=== PATIENT | male | born 2000 | race Caucasian/White ===

== ENCOUNTER 2019-05-26 10:13 | Emergency (ER) | payer OTHER ==
[~2019-05-26] VITALS: Ht 193 cm; Wt 95.2 kg
[~2019-05-26 10:13] MED LIST: LORA1 PO
[2019-05-26] MEDS ORDERED: TOPI50 (10:20)
[2019-05-26] MEDS ORDERED: Tenex1 MG (10:20)
[2019-05-26] MEDS ORDERED: TRAZ100 (10:21)
[2019-05-26] MEDS ORDERED: METPHE18ER PO (10:21)
== END 2019-05-26 11:29 | disposition home or self-care (01) ==
LOC: ER 10:13
DX: S60.211A Contusion of right wrist, initial encounter (principal); W17.89XA Other fall from one level to another, initial encounter; Z88.5 Allergy status to narcotic agent; Z79.899 Other long term (current) drug therapy; F25.9 Schizoaffective disorder, unspecified; F90.9 Attention-deficit hyperactivity disorder, unspecified type
CPT/HCPCS: 29125; 73110; 99283-25

== ENCOUNTER 2019-05-31 09:54 | Emergency (ER) | payer OTHER ==
[~2019-05-31] VITALS: Ht 193 cm; Wt 90.7 kg
[~2019-05-31 09:54] MED LIST changes: +METPHE18ER PO; +TOPI50; +TRAZ100; +Tenex1 MG
== END 2019-05-31 12:15 | disposition home or self-care (01) ==
LOC: ER 09:54
DX: M25.531 Pain in right wrist (principal); Z88.5 Allergy status to narcotic agent; Z79.899 Other long term (current) drug therapy; F90.9 Attention-deficit hyperactivity disorder, unspecified type; F25.9 Schizoaffective disorder, unspecified
CPT/HCPCS: 29125; 99283-25

== ENCOUNTER 2019-06-24 00:14 | Emergency (ER) | payer OTHER ==
[~2019-06-24] VITALS: Ht 195.6 cm; Wt 88.5 kg
[2019-06-24] MEDS ORDERED: METPHE18ER PO (00:32)
[2019-06-24 00:56] LABS: BASOPHILS ABSOLUTE AUTO 0.03 K/mm3 (0.00-0.23); BASOPHILS PERCENT AUTO 0 % (0-2); EOSINOPHILS ABSOLUTE AUTO 0.06 K/mm3 (0.00-0.68); EOSINOPHILS PERCENT AUTO 1 % (0-6); Hemoglobin 15.2 g/dL (13.5-17.5); IMMATURE GRAN ABSOLUTE AUTO 0.04 K/mm3 (0.00-0.10); IMMATURE GRAN PERCENT AUTO 0 % (0-1); LYMPHOCYTES ABSOLUTE AUTO 3.45 K/mm3 (0.84-5.20); LYMPHOCYTES PERCENT AUTO 31 % (21-46); MONOCYTES ABSOLUTE AUTO 0.81 K/mm3 (0.16-1.47); MONOCYTES PERCENT AUTO 7 % (4-13); Mean Corpuscular HGB Conc 32.3 g/dL (31.5-36.5); Mean Corpuscular Volume 90 fL (80-100); Mean Platelet Volume 10.5 fL (9.1-12.4); NEUTROPHILS ABSOLUTE AUTO 6.86 K/mm3 (1.96-9.15); NEUTROPHILS PERCENT AUTO 61 % (41-73); Platelet Count 267 K/mm3 (150-400); RDW Coefficient Variation 12.6 % (11.7-14.2); RDW Standard Deviation 41.6 fL (35.1-46.3); Red Blood Cell Count 5.25 M/mm3 (4.30-5.90); White Blood Cell Count 11.25 K/mm3 (4.00-11.30)
[2019-06-24 01:17] LABS: Alanine Aminotransfer (ALT/SGP 41 U/L (12-78); Albumin, Blood 4.3 g/dL (3.4-5.0); Albumin/Globulin Ratio 1.3 (0.8-1.8); Alk Phos 91 U/L (50-136); Anion Gap 8 mmol/L (6-16); Aspartate Aminotrans (AST/SGOT 24 U/L (12-37); Bilirubin, Total 0.4 mg/dL (0.1-1.0); Blood Urea Nitrogen 21 mg/dL (8-24); Bun/Creatinine Ratio 17.9 (12.0-20.0); CO2, Blood 23 mmol/L (21-32); Chloride, Blood 110 mmol/L (98-108); Creatinine, Blood 1.17 mg/dL (0.60-1.20); Globulin, Blood 3.3 g/dL (2.2-4.0); Glomerular Filtration Rate >60 (60-); Glucose, Blood 95 mg/dL (70-99); Potassium, Blood 3.6 mmol/L (3.5-5.5); Sodium, Blood 141 mmol/L (136-145); Total Protein, Blood 7.6 g/dL (6.4-8.2); Troponin I <0.015 ng/mL (0.000-0.040)
== END 2019-06-24 01:51 | disposition home or self-care (01) ==
LOC: ER 00:14
PROVIDERS: Emergency Medicine
DX: R00.2 Palpitations (principal); F90.9 Attention-deficit hyperactivity disorder, unspecified type; F25.9 Schizoaffective disorder, unspecified; Z88.5 Allergy status to narcotic agent; Z79.899 Other long term (current) drug therapy
CPT/HCPCS: 36415; 80053; 84484; 85025; 93005; 93010; 99285-25